=== PATIENT | male | born 1955 | race Caucasian/White ===

== ENCOUNTER → 2023-05-12 | Outpatient (CLI) | payer OTHER ==
[~2023-05-12] MED LIST: IOHEXOL 350 MG/ML 150 ML (OMNIPAQUE 350) VIAL IV ONE; NS 100 ML (IVPB) BAG IV ONE
[2023-05-12 09:18] LABS: CREATININE SERUM 0.81 MG/DL (0.60-1.30)
--- NOTE | 2023-05-12 11:27 | Diagnostic Imaging Report ---
PROCEDURE: US Renal Bilateral. TECHNIQUE: Multiple real-time grayscale images were obtained over the kidneys in various projections bilaterally. INDICATION: Renal cyst. Right kidney measures 12.7 x 6.8 x 6.8 cm and the left kidney measures 12.9 x 6.6 x 7.1 cm. A cortical thickness and echogenicity appears normal bilaterally. No calculi are seen. There is no hydronephrosis. There appear to be multiple renal cysts present, largest on the right approximately 1.5 cm in the lower pole. Largest on the left is in the midportion measuring 3.5 cm. Bilateral ureteral jets were visualized. IMPRESSION: Bilateral renal cysts, largest on the left. No calculi or hydronephrosis is detected. Dictated by: Dictated on workstation # [id number]
--- NOTE | 2023-05-12 13:24 | Diagnostic Imaging Report ---
TECHNIQUE: CTA of the abdomen and pelvis is performed with runoff to the bilateral lower extremities. Sagittal and coronal reformats were obtained. 3-D reformats were also obtained. Dose reduction techniques were utilized. REASON FOR EXAM: Left leg pain. History of smoking. Right-sided weakness. COMPARISON: None. FINDINGS: Calcified atherosclerotic plaque is seen in the abdominal aorta without aneurysm or dissection. The celiac trunk, SMA, KENNEDI, and renal arteries are patent. Atherosclerotic plaque is seen in the bilateral common and external iliac arteries. There is occlusion of the right external iliac and common femoral arteries with reconstitution of flow at the bifurcation of the right common femoral artery. The right profunda femoris is widely patent without focal stenosis. The right superficial femoral artery and popliteal artery are patent without significant stenosis. Single-vessel runoff to the right ankle with the posterior tibial artery patent. The right dorsalis pedis artery is not visualized. The left common femoral, profunda femoris, superficial femoral, and popliteal arteries are patent without focal stenosis. There is two-vessel runoff to the left ankle with the anterior and posterior cerebral arteries visualized. The left dorsalis pedis artery is visualized. No acute fracture in the osseous structures of the lower extremities. No soft tissue mass. The heart size is normal. Dependent atelectasis is seen in the lung bases. There is hepatic steatosis. No focal hepatic lesions. Gallstones are noted. Simple cortical cysts are seen in the kidneys. No hydronephrosis. The urinary bladder is nondistended. The spleen, pancreas, and adrenal glands have a normal appearance. No bowel obstruction. Normal appendix is seen in the right lower quadrant. Diverticulosis of the sigmoid colon is seen without evidence of acute diverticulitis. No free fluid or free air. IMPRESSION: 1. 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 2. Single vessel runoff to the right ankle with nonvisualization of the right dorsalis pedis artery. Two-vessel runoff is seen to the left ankle with the left dorsalis pedis artery intact. 3. Hepatic steatosis. 4. Cholelithiasis. 5. Diverticulosis of the sigmoid colon without evidence of acute diverticulitis. Dictated by: Dictated on workstation # [id number]
== END ==
LOC: RAD 08:35
PROVIDERS: ATTEND Nurse Practitioner
DX: N28.1 Cyst of kidney, acquired (principal); I74.5 Embolism and thrombosis of iliac artery; I74.3 Embolism and thrombosis of arteries of the lower extremities; K76.0 Fatty (change of) liver, not elsewhere classified; K80.20 Calculus of gallbladder without cholecystitis without obstruction; K57.30 Diverticulosis of large intestine without perforation or abscess without bleeding; I63.9 Cerebral infarction, unspecified; J44.9 Chronic obstructive pulmonary disease, unspecified; E78.5 Hyperlipidemia, unspecified; F33.9 Major depressive disorder, recurrent, unspecified; I11.0 Hypertensive heart disease with heart failure; I50.20 Unspecified systolic (congestive) heart failure; F17.218 Nicotine dependence, cigarettes, with other nicotine-induced disorders; M19.91 Primary osteoarthritis, unspecified site; G47.30 Sleep apnea, unspecified; E11.9 Type 2 diabetes mellitus without complications
CPT/HCPCS: 36415; 76770; 82565; 84520

== ENCOUNTER 2023-06-23 19:51 | Emergency (ER) | payer OTHER ==
[~2023-06-23] VITALS: Ht 185.4 cm; Wt 106.5 kg
[2023-06-23 20:08] LABS: BASOPHILS # (AUTO) 0.1 10^3/uL (0.0-0.1); BASOPHILS % (AUTO) 0 % (0-10); EOSINOPHILS # (AUTO) 0.2 10^3/uL (0.0-0.3); EOSINOPHILS % (AUTO) 2 % (0-10); HEMATOCRIT 46 % (40-54); HEMOGLOBIN 16.1 g/dL (13.3-17.7); LYMPHOCYTES # (AUTO) 3.9 10^3/uL (1.0-4.0); LYMPHOCYTES % (AUTO) 29 % (12-44); MEAN CORPUSCULAR HEMOGLOBIN 33 pg (25-34); MEAN CORPUSCULAR HGB CONC 35 g/dL (32-36); MEAN CORPUSCULAR VOLUME 94 fL (80-99); MONOCYTES % (AUTO) 8 % (0-12); NEUTROPHILS % (AUTO) 61 % (42-75); PLATELET COUNT 247 10^3/uL (130-400); WHITE BLOOD COUNT 13.2 10^3/uL (4.3-11.0)
--- NOTE | 2023-06-23 20:10 | ED Chest Pain ---
General Chief Complaint: Chest Pain Stated Complaint: CHEST PAIN, SOB, TREMORS Nursing Triage Note: PT ARRIVED POV WITH CC OF CP, SOB, AND TREMORS. PT STATES THAT SYMPTOMS STARTED `1 HR AGO. PT APPEARS PALE AND DIAPHORETIC. Source: patient Exam Limitations: no limitations History of Present Illness Date Seen by Provider: Jun 23, 2023 Time Seen by Provider: 19:53 Initial Comments 67-year-old male presents to the emergency department today for chest pain. He states symptoms started on as "wobbly legs." He states he then later that day had muscle contractions in his shoulders. These seem to be spontaneous in nature and have persisted since that time. He states these seem to be sporadic, no obvious aggravating or alleviating factors and lasts about 5 to 10 minutes when present. This evening he started to have some pressure in his left anterior chest in association with 1 of these episodes. The muscle spasms have concluded at present but he still has a little bit of pressure in his left anterior chest. Pressure started about 2 to 3 hours prior to arrival. He denies any known cardiac history and has had struggles with stress test, most recently 1 year ago per his report this was normal. He does not have any stents in his heart he denies any fevers or chills. He does have some mild increased shortness of breath. No leg swelling or orthopnea. No other recent illnesses. 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 All other systems reviewed and negative except documented per HPI. Voice recognition software was used to help create this chart Allergies and Home Medications Allergies Coded Allergies: No Allergy Information Available (Unverified , 05/12/23) Patient Home Medication List Home Medication List Reviewed: Yes Review of Systems Review of Systems Constitutional: see HPI Past Oxwjbyw-Dhciuq-Kivejh Hx Patient Social History Tobacco Use?: Yes Tobacco type used: Cigarettes Smoking Status: Current Everyday Smoker Alcohol Use?: Yes Alcohol type: Beer Alcohol Frequency: Daily Past Medical History Surgery/Hospitalization HX: STROKE, HEART ATTACK, COPD, DM Physical Exam Vital Signs Vital Signs - First Documented 06/23/23 19:59 Temp 36.2 Pulse 97 B/P (MAP) 169/118 (135) Pulse Ox 97 O2 Delivery Room Air Capillary Refill : Height, Weight, BMI Height: '" Weight: lbs. oz. kg; 30.00 BMI Method: General Appearance: No Apparent Distress, WD/WN HEENT: Normal ENT Inspection, Pharynx Normal Neck: Full Range of Motion, Normal Inspection, Non Tender, Supple Respiratory: Chest Non Tender, Lungs Clear, Normal Breath Sounds, No Accessory Muscle Use, No Respiratory Distress Cardiovascular: No Murmur, Tachycardia Gastrointestinal: Normal Bowel Sounds, No Organomegaly, Non Tender, Soft Extremity: Normal Capillary Refill, Non Tender, No Calf Tenderness, No Pedal Edema Neurologic/Psychiatric: Alert, Oriented x3, No Motor/Sensory Deficits Skin: Normal Color, Diaphoresis Progress/Results/Core Measures Results/Orders Lab Results Laboratory Tests Test 06/23/23 20:00 Range/Units White Blood Count 13.2 H 4.3-11.0 10^3/uL Red Blood Count 4.92 4.30-5.52 10^6/uL Hemoglobin 16.1 13.3-17.7 g/dL Hematocrit 46 40-54 % Mean Corpuscular Volume 94 80-99 fL Mean Corpuscular Hemoglobin 33 25-34 pg Mean Corpuscular Hemoglobin Concent 35 32-36 g/dL Red Cell Distribution Width 13.5 10.0-14.5 % Platelet Count 247 130-400 10^3/uL Mean Platelet Volume 9.0 9.0-12.2 fL Immature Granulocyte % (Auto) 0 % Neutrophils (%) (Auto) 61 42-75 % Lymphocytes (%) (Auto) 29 12-44 % Monocytes (%) (Auto) 8 0-12 % Eosinophils (%) (Auto) 2 0-10 % Basophils (%) (Auto) 0 0-10 % Neutrophils # (Auto) 8.0 H 1.8-7.8 10^3/uL Lymphocytes # (Auto) 3.9 1.0-4.0 10^3/uL Monocytes # (Auto) 1.0 0.0-1.0 10^3/uL Eosinophils # (Auto) 0.2 0.0-0.3 10^3/uL Basophils # (Auto) 0.1 0.0-0.1 10^3/uL Immature Granulocyte # (Auto) 0.0 0.0-0.1 10^3/uL Sodium Level 136 135-145 MMOL/L Potassium Level 4.2 3.6-5.0 MMOL/L Chloride Level 102 98-107 MMOL/L Carbon Dioxide Level 22 21-32 MMOL/L Anion Gap 12 5-14 MMOL/L Blood Urea Nitrogen 12 7-18 MG/DL Creatinine 0.81 0.60-1.30 MG/DL Estimat Glomerular Filtration Rate 97 BUN/Creatinine Ratio 15 Glucose Level 102 70-105 MG/DL Calcium Level 9.7 8.5-10.1 MG/DL Corrected Calcium 9.3 8.5-10.1 MG/DL Magnesium Level 2.1 1.6-2.4 MG/DL Total Bilirubin 0.4 0.1-1.0 MG/DL Aspartate Amino Transf (AST/SGOT) 22 5-34 U/L Alanine Aminotransferase (ALT/SGPT) 23 0-55 U/L Alkaline Phosphatase 64 40-136 U/L Troponin I < 0.028 <0.028 NG/ML Total Protein 7.9 6.4-8.2 GM/DL Albumin 4.5 3.2-4.5 GM/DL My Orders Orders - PIEDAD HADDAD DO Ekg Tracing (06/23/23 19:55) Cbc And Automated Diff (06/23/23 20:03) Magnesium (06/23/23 20:03) Chest 1 View, Ap/Pa Only (06/23/23 20:03) Ekg Tracing (06/23/23 20:03) Comprehensive Metabolic Panel (06/23/23 20:03) Monitor-Rhythm Ecg Trace Only (06/23/23 20:03) Ed Iv/Invasive Line Start (06/23/23 20:03) Troponin I Grisel (06/23/23 20:03) Aspirin Chewable Tablet (Aspirin Chewabl (06/23/23 20:15) Lorazepam Injection (Lorazepam Injection (06/23/23 20:15) Medications Given in ED Vital Signs/I&O 06/23/23 06/23/23 19:59 21:37 Temp 36.2 Pulse 97 B/P (MAP) 169/118 (135) 104/72 Pulse Ox 97 97 O2 Delivery Room Air Room Air Blood Pressure Mean: 135 Comment sinus rhythm with rate 97 bpm. normal intervals, LAD. no ST or T wave abnormalities, no ectopy. No STEMI. Departure Communication (Admissions) Patient is hemodynamically stable. EKG is nonischemic, independent review. Troponin is negative. He states he was concerned that he had a stroke. He has no focal neurologic deficits and normal strength in his bilateral upper and lower extremity at present. No facial droop, dysarthria or changes in his vision. He was concerned mostly because he had a stroke previous and had unilateral symptoms however he is not having any unilateral or localizing symptoms at this time. No indication for head CT as his symptoms are not consistent with cerebrovascular accident or other intracranial abnormality. His labs, electrolytes and CBC are reassuring as is his exam. His vital signs are normal as well. With that he be discharged home in stable condition with supportive care and close primary care follow-up. He states understanding and is comfortable agreeable current plan of care. I did review his chest x-ray independently which shows no acute cardiopulmonary abnormality Impression Primary Impression: Chest pain Qualified Codes: R07.9 - Chest pain, unspecified Disposition: 01 HOME, SELF-CARE Condition: Stable Departure-Patient Inst. Referrals: NO,LOCAL PHYSICIAN (PCP/Family) Primary Care Physician Patient Instructions: Chest Pain (DC) Add. Discharge Instructions: As discussed no emergent medical condition is identified for your symptoms today your heart enzymes and EKG are reassuring as is your exam and explains. Return to emergency immediately if your symptoms change and have been concerning to you. Follow with primary doctor for discussion of further testing: Possible stress testing if needed but necessary All discharge instructions reviewed with patient and/or family. Voiced understanding. PIEDAD HADDAD DO Jun 23, 2023 20:10
[2023-06-23] MEDS ORDERED: ASPIRIN 81 MG CHEWABLE TABLET PO ONE (20:15)
[2023-06-23 20:25] LABS: ALBUMIN 4.5 GM/DL (3.2-4.5); CHLORIDE 102 MMOL/L (98-107); POTASSIUM 4.2 MMOL/L (3.6-5.0); SODIUM 136 MMOL/L (135-145)
[2023-06-23 20:26] LABS: CALCIUM 9.7 MG/DL (8.5-10.1)
[2023-06-23 20:27] LABS: GLUCOSE 102 MG/DL (70-105); TOTAL PROTEIN 7.9 GM/DL (6.4-8.2)
[2023-06-23 20:28] LABS: CARBON DIOXIDE 22 MMOL/L (21-32)
[2023-06-23 20:29] LABS: BILIRUBIN,TOTAL 0.4 MG/DL (0.1-1.0)
[2023-06-23 20:31] LABS: ALKALINE PHOSPHATASE 64 U/L (40-136); CREATININE SERUM 0.81 MG/DL (0.60-1.30); GFR ESTIMATED 97
[2023-06-23 20:32] LABS: BUN/CREATININE RATIO 15
[2023-06-23 20:34] LABS: ALANINE AMINOTRANSFERASE 23 U/L (0-55); MAGNESIUM 2.1 MG/DL (1.6-2.4)
--- NOTE | 2023-06-23 20:44 | Diagnostic Imaging Report ---
INDICATION: Chest pain and dyspnea Single AP view of the chest is obtained. Overall heart size is within normal limits. Pulmonary vascularity is at the upper limits of normal with mild background air trapping. Numerous metallic fragments project over the right chest with associated old right rib fractures. There is no pneumothorax or significant pleural fluid. IMPRESSION: Probable background emphysema and borderline pulmonary venous congestion. Otherwise, no acute abnormality is seen. Correlation with prior right thoracic trauma would be useful. Dictated by: Dictated on workstation # [id number]
[2023-06-23 21:37] VITALS: BP 104/72
== END 2023-06-23 21:39 | disposition home or self-care (01) ==
LOC: EDUNIT# 19:51 → ER 19:54
DX: R07.89 Other chest pain (principal); R06.02 Shortness of breath; F17.210 Nicotine dependence, cigarettes, uncomplicated
CPT/HCPCS: 36415; 71045; 80053; 83735; 84484; 85025; 93005; 93041; 96374

== ENCOUNTER → 2023-08-07 | Outpatient (CLI) | payer OTHER | LOC: CARD 10:54 | PROVIDERS: ATTEND Internal Medicine Cardiovascular Disease | DX: I10 Essential (primary) hypertension (principal); I25.10 Atherosclerotic heart disease of native coronary artery without angina pectoris | CPT/HCPCS: 93306 ==

== ENCOUNTER → 2023-08-11 | Outpatient (CLI) | payer OTHER ==
[~2023-08-11] MED LIST changes: +CATHETER FLUSH 10 ML SYR IVP PRN; -IOHEXOL 350 MG/ML 150 ML (OMNIPAQUE 350) VIAL IV ONE; -NS 100 ML (IVPB) BAG IV ONE; +REGADENOSON 0.4 MG/5 ML SYR IV ONE
[2023-08-11 09:06] VITALS: BP 149/69
--- NOTE | 2023-08-11 16:21 | Cardiology Stress Test Report ---
Stress Test Report Date of Procedure/Referring: Date of Procedure: Aug 11, 2023 PCP No,Local Physician Admitting Physician Admitting Physician: Attending Physician: Victoria Blanco MD Baseline Heart Rate: 80 Baseline Blood Pressure: Blood Pressure Systolic: 149 Blood Pressure Diastolic: 69 Baseline Vitals Vital Signs Date Time Temp Pulse Resp B/P (MAP) Pulse Ox O2 Delivery O2 Flow Rate FiO2 08/11/23 09:06 81 149/69 (95) Baseline EKG: Baseline EKG: NSR Summary After explaining the procedure to the patient, he signed a consent and then brought to the stress nuclear laboratory. Patient received 0.4 mg Lexiscan for stress test, ECG, heart rate and blood pressure were monitored continuously. Resting and stress dose of radio tracer were injected, imaging was acquired and reviewed in short axis, horizontal long axis and vertical long axis views. TID: 1.15 SSS: 35 SDS: 8 EF: 49 Patient tolerated Lexiscan well Diaphragmatic attenuation with fixed defect involving the apex, anterior apical and inferoapical segment, small area of reversible ischemia involving the mid anterior wall and anterior lateral wall Normal left ventricular size, akinesia of the apex, hypokinesia of the left ventricle, ejection fraction 49% VICTORIA BLANCO MD Aug 11, 2023 16:21
== END ==
LOC: CARD 07:23
PROVIDERS: ATTEND Internal Medicine Cardiovascular Disease
DX: I10 Essential (primary) hypertension (principal); I25.10 Atherosclerotic heart disease of native coronary artery without angina pectoris
CPT/HCPCS: 78452; 93017